=== PATIENT | male | born 1995 | race African-American/Black ===

== ENCOUNTER 2017-10-19 09:11 | Emergency (ER) | payer MEDICAID ==
[~2017-10-19] VITALS: Ht 190.5 cm; Wt 64.4 kg
[~2017-10-19 09:11] MED LIST: TYL3 PO
[2017-10-19 09:30] VITALS: BP 118/76
[2017-10-19] MEDS ORDERED: IBUPROFEN 600 MG TAB PO ONE (11:00)
[2017-10-19 11:20] VITALS: BP 113/67
== END 2017-10-19 11:20 | disposition home or self-care (01) ==
LOC: MED 09:11
DX: S63.91XA Sprain of unspecified part of right wrist and hand, initial encounter (principal); X58.XXXA Exposure to other specified factors, initial encounter; Y93.89 Activity, other specified; Y99.8 Other external cause status; Y92.89 Other specified places as the place of occurrence of the external cause
CPT/HCPCS: 29125; 73130; 99284; Q0092